=== PATIENT | female | born 1985 | race Caucasian/White ===

== ENCOUNTER 2022-11-25 14:05 | Outpatient (CLI) | payer OTHER, SELFPAY ==
[2022-11-26 16:06] LABS: Strep A DNA Probe* DETECTED (Not Detectd)
== END 2022-11-25 14:06 | disposition home or self-care (01) ==
LOC: KYNREF 14:05
PROVIDERS: Visit Provider Nurse Practitioner Family
DX: J02.0 Streptococcal pharyngitis (principal)
CPT/HCPCS: 87651